=== PATIENT | male | born 1955 | race Caucasian/White ===

== ENCOUNTER 2017-03-10 15:33 | Inpatient (IN) | payer OTHER ==
[~2017-03-10] VITALS: Ht 175.3 cm; Wt 81.2 kg
[2017-03-10 16:09] LABS: BASO % 0.2 % (0.2-1.2); EOS # 0.1 10_X3_uL (0.0-0.5); EOS % 1.1 % (0.8-7.0); GRAN # 7.9 10_X3_uL (1.8-5.4); GRAN % 76.8 % (34.0-67.9); HEMATOCRIT 43.1 % (40-51); HEMOGLOBIN 14.6 g/dL (13.7-17.5); LYMPH # 1.4 10_X3_uL (1.3-3.6); LYMPH % 13.6 % (21.8-53.1); MEAN CORPUSCULAR HEMOGLOBIN 28.7 pg (27.0-33.0); MEAN CORPUSCULAR HGB CONC 33.9 g/dL (32.0-36.0); MEAN CORPUSCULAR VOLUME 84.8 fL (79-92); MEAN PLATELET VOLUME 8.9 fl (7.5-11.5); MONO # 0.9 10_X3_uL (0.3-0.8); MONO % 8.3 % (5.3-12.2); PLATELET COUNT 276 x10_3/uL (163-337); RED BLOOD COUNT 5.08 x10_6/uL (4.6-6.1); RED CELL DISTRIBUTION WIDTH 12.5 % (11.6-14.4); WHITE BLOOD COUNT 10.3 x10_3/uL (4.2-9.1)
[2017-03-10 16:23] LABS: ALKALINE PHOSPHATASE 92 U/L (50-136); ALT/SGPT 13 U/L (7.53-40.17); AST/SGOT 20 U/L (6.66-35.34); BILIRUBIN,TOTAL 0.27 mg/dL (0.0-1.0); BLOOD UREA NITROGEN 21 mg/dL (7-18); CALCIUM 9.1 mg/dL (8.7-10.7); CARBON DIOXIDE 24 mmol/L (21-32); CREATININE 0.9 mg/dL (0.6-1.3); GLUCOSE,RANDOM 135 mg/dL (70-99); LIPASE 19 U/L (6.75-60.75); SODIUM 139 mmol/L (136-145); TOTAL PROTEIN 6.8 gm/dL (6.4-8.2)
[2017-03-11 06:22] LABS: BASO % 0.1 % (0.2-1.2); EOS # 0.2 10_X3_uL (0.0-0.5); EOS % 2.3 % (0.8-7.0); GRAN # 6.2 10_X3_uL (1.8-5.4); HEMATOCRIT 40.1 % (40-51); HEMOGLOBIN 13.3 g/dL (13.7-17.5); LYMPH # 1.4 10_X3_uL (1.3-3.6); LYMPH % 16.6 % (21.8-53.1); MEAN CORPUSCULAR HEMOGLOBIN 28.5 pg (27.0-33.0); MEAN CORPUSCULAR HGB CONC 33.2 g/dL (32.0-36.0); MEAN CORPUSCULAR VOLUME 86.1 fL (79-92); MONO # 0.8 10_X3_uL (0.3-0.8); PLATELET COUNT 244 x10_3/uL (163-337); RED BLOOD COUNT 4.66 x10_6/uL (4.6-6.1); RED CELL DISTRIBUTION WIDTH 12.4 % (11.6-14.4); WHITE BLOOD COUNT 8.6 x10_3/uL (4.2-9.1)
[2017-03-12 07:03] LABS: HEMATOCRIT 39.3 % (40-51); HEMOGLOBIN 13.4 g/dL (13.7-17.5); MEAN CORPUSCULAR HEMOGLOBIN 28.7 pg (27.0-33.0); MEAN CORPUSCULAR HGB CONC 34.1 g/dL (32.0-36.0); MEAN CORPUSCULAR VOLUME 84.2 fL (79-92); MEAN PLATELET VOLUME 8.8 fl (7.5-11.5); RED BLOOD COUNT 4.67 x10_6/uL (4.6-6.1); RED CELL DISTRIBUTION WIDTH 11.9 % (11.6-14.4); WHITE BLOOD COUNT 9.4 x10_3/uL (4.2-9.1)
[2017-03-12 07:19] LABS: ALBUMIN 3.3 gm/dL (3.4-5.0); ALKALINE PHOSPHATASE 75 U/L (50-136); ALT/SGPT 8 U/L (7.53-40.17); AST/SGOT 12 U/L (6.66-35.34); BILIRUBIN,TOTAL 0.46 mg/dL (0.0-1.0); BLOOD UREA NITROGEN 13 mg/dL (7-18); CALCIUM 8.7 mg/dL (8.7-10.7); CARBON DIOXIDE 24 mmol/L (21-32); CREATININE 0.9 mg/dL (0.6-1.3); GLUCOSE,RANDOM 92 mg/dL (70-99); POTASSIUM 4.4 mmol/L (3.5-5.1); SODIUM 140 mmol/L (136-145); TOTAL PROTEIN 6.1 gm/dL (6.4-8.2)
[2017-03-13 05:35] LABS: URINE BILIRUBIN NEGATIVE (NEGATIVE); URINE BLOOD TRACE (NEGATIVE); URINE GLUCOSE (UA) NORMAL (NORMAL); URINE KETONE NEGATIVE (NEGATIVE); URINE LEUKOCYTE ESTERASE TRACE (NEGATIVE); URINE NITRATE NEGATIVE (NEGATIVE); URINE PROTEIN NEGATIVE (NEGATIVE); UROBILINOGEN NORMAL mg/dL (<1.0)
[2017-03-13 05:43] LABS: URINE RBC 0-5 /[HPF] (0-2)
[2017-03-13 06:41] LABS: BASO % 0.2 % (0.2-1.2); EOS # 0.1 10_X3_uL (0.0-0.5); EOS % 1.5 % (0.8-7.0); GRAN # 6.3 10_X3_uL (1.8-5.4); GRAN % 74.1 % (34.0-67.9); HEMATOCRIT 38.8 % (40-51); HEMOGLOBIN 13.2 g/dL (13.7-17.5); LYMPH # 1.3 10_X3_uL (1.3-3.6); LYMPH % 14.9 % (21.8-53.1); MEAN CORPUSCULAR HEMOGLOBIN 28.5 pg (27.0-33.0); MEAN CORPUSCULAR VOLUME 83.8 fL (79-92); MEAN PLATELET VOLUME 8.9 fl (7.5-11.5); MONO # 0.8 10_X3_uL (0.3-0.8); MONO % 9.3 % (5.3-12.2); PLATELET COUNT 271 x10_3/uL (163-337); RED BLOOD COUNT 4.63 x10_6/uL (4.6-6.1); RED CELL DISTRIBUTION WIDTH 11.9 % (11.6-14.4); WHITE BLOOD COUNT 8.5 x10_3/uL (4.2-9.1)
[2017-03-13 07:18] LABS: ALBUMIN 3.2 gm/dL (3.4-5.0); ALKALINE PHOSPHATASE 72 U/L (50-136); ALT/SGPT 6 U/L (7.53-40.17); AST/SGOT 13 U/L (6.66-35.34); BILIRUBIN,TOTAL 0.42 mg/dL (0.0-1.0); BLOOD UREA NITROGEN 11 mg/dL (7-18); CALCIUM 8.6 mg/dL (8.7-10.7); CARBON DIOXIDE 25 mmol/L (21-32); CREATININE 0.9 mg/dL (0.6-1.3); GLUCOSE,RANDOM 97 mg/dL (70-99); MAGNESIUM 1.8 mg/dL (1.8-2.4); SODIUM 137 mmol/L (136-145); TOTAL PROTEIN 6.2 gm/dL (6.4-8.2)
[2017-03-14 07:15] LABS: HEMATOCRIT 40.2 % (40-51); HEMOGLOBIN 13.6 g/dL (13.7-17.5); MEAN CORPUSCULAR HEMOGLOBIN 28.3 pg (27.0-33.0); MEAN CORPUSCULAR HGB CONC 33.8 g/dL (32.0-36.0); MEAN CORPUSCULAR VOLUME 83.8 fL (79-92); RED BLOOD COUNT 4.8 x10_6/uL (4.6-6.1); RED CELL DISTRIBUTION WIDTH 12.1 % (11.6-14.4); WHITE BLOOD COUNT 8.2 x10_3/uL (4.2-9.1)
[2017-03-14 07:22] LABS: BLOOD UREA NITROGEN 9 mg/dL (7-18); CALCIUM 8.7 mg/dL (8.7-10.7); CARBON DIOXIDE 25 mmol/L (21-32); CREATININE 0.8 mg/dL (0.6-1.3); GLUCOSE,RANDOM 108 mg/dL (70-99); POTASSIUM 4.1 mmol/L (3.5-5.1); SODIUM 139 mmol/L (136-145)
[2017-03-15 06:20] LABS: HEMATOCRIT 39.1 % (40-51); HEMOGLOBIN 13.6 g/dL (13.7-17.5); MEAN CORPUSCULAR HGB CONC 34.8 g/dL (32.0-36.0); MEAN CORPUSCULAR VOLUME 83.4 fL (79-92); MEAN PLATELET VOLUME 8.6 fl (7.5-11.5); RED BLOOD COUNT 4.69 x10_6/uL (4.6-6.1); WHITE BLOOD COUNT 7.8 x10_3/uL (4.2-9.1)
[2017-03-15 06:35] LABS: BLOOD UREA NITROGEN 10 mg/dL (7-18); CALCIUM 8.4 mg/dL (8.7-10.7); CARBON DIOXIDE 24 mmol/L (21-32); CREATININE 0.8 mg/dL (0.6-1.3); GLUCOSE,RANDOM 108 mg/dL (70-99); POTASSIUM 4.2 mmol/L (3.5-5.1); SODIUM 138 mmol/L (136-145)
== END 2017-03-15 11:05 | disposition home or self-care (01) | DRG 392 ==
LOC: ER 15:33 → MS 17:46
PROVIDERS: Family Medicine; Internal Medicine; ADMIT Family Medicine
DX: K57.20 Diverticulitis of large intestine with perforation and abscess without bleeding (principal); R10.30 Lower abdominal pain, unspecified; R31.9 Hematuria, unspecified; K59.00 Constipation, unspecified; E78.5 Hyperlipidemia, unspecified; J44.9 Chronic obstructive pulmonary disease, unspecified; G47.00 Insomnia, unspecified; R50.9 Fever, unspecified; E03.9 Hypothyroidism, unspecified; F17.210 Nicotine dependence, cigarettes, uncomplicated; Z83.3 Family history of diabetes mellitus; Z80.9 Family history of malignant neoplasm, unspecified; Z82.49 Family history of ischemic heart disease and other diseases of the circulatory system; Z79.1 Long term (current) use of non-steroidal anti-inflammatories (NSAID); Z79.899 Other long term (current) drug therapy
CPT/HCPCS: 36415; 74150; 80048; 80053; 81001; 83690; 83735; 85025; 87040; 96365; 96367; 96375; 99070; 99285-25; J7042

== ENCOUNTER 2017-04-09 09:31 | Observation (INO) | payer OTHER ==
[~2017-04-09] VITALS: Ht 180.3 cm; Wt 82.0 kg
[2017-04-09 11:13] LABS: HEMATOCRIT 41.8 % (40-51); HEMOGLOBIN 14.1 g/dL (13.7-17.5); MEAN CORPUSCULAR HEMOGLOBIN 28.1 pg (27.0-33.0); MEAN CORPUSCULAR HGB CONC 33.7 g/dL (32.0-36.0); MEAN CORPUSCULAR VOLUME 83.3 fL (79-92); RED BLOOD COUNT 5.02 x10_6/uL (4.6-6.1); RED CELL DISTRIBUTION WIDTH 12.5 % (11.6-14.4); WHITE BLOOD COUNT 13.4 x10_3/uL (4.2-9.1)
[2017-04-09 11:25] LABS: ALBUMIN 3.8 gm/dL (3.4-5.0); ALKALINE PHOSPHATASE 78 U/L (50-136); ALT/SGPT 22 U/L (7.53-40.17); AMYLASE 58 U/L (15.62-74.58); AST/SGOT 23 U/L (6.66-35.34); BILIRUBIN,TOTAL 0.44 mg/dL (0.0-1.0); BLOOD UREA NITROGEN 16 mg/dL (7-18); CALCIUM 9.5 mg/dL (8.7-10.7); CARBON DIOXIDE 28 mmol/L (21-32); CREATININE 0.8 mg/dL (0.6-1.3); GLUCOSE,RANDOM 98 mg/dL (70-99); LIPASE 19 U/L (6.75-60.75); POTASSIUM 4.8 mmol/L (3.5-5.1); SODIUM 138 mmol/L (136-145); TOTAL PROTEIN 7.5 gm/dL (6.4-8.2)
[2017-04-09 14:45] LABS: URINE BILIRUBIN NEGATIVE (NEGATIVE); URINE BLOOD TRACE (NEGATIVE); URINE GLUCOSE (UA) NORMAL (NORMAL); URINE KETONE NEGATIVE (NEGATIVE); URINE LEUKOCYTE ESTERASE TRACE (NEGATIVE); URINE NITRATE NEGATIVE (NEGATIVE); URINE PROTEIN TRACE (NEGATIVE); UROBILINOGEN NORMAL mg/dL (<1.0)
[2017-04-09 14:47] LABS: URINE BACTERIA TRACE (NONE SEEN); URINE RBC RARE /[HPF] (0-2); URINE SQUAMOUS EPITHELIAL CELL 0-10 /[HPF] (NONE SEEN); URINE WBC RARE /[HPF] (0-3)
[2017-04-10 06:37] LABS: ALBUMIN 3.2 gm/dL (3.4-5.0); ALKALINE PHOSPHATASE 64 U/L (50-136); ALT/SGPT 17 U/L (7.53-40.17); AST/SGOT 19 U/L (6.66-35.34); BILIRUBIN,TOTAL 0.51 mg/dL (0.0-1.0); BLOOD UREA NITROGEN 16 mg/dL (7-18); CALCIUM 8.6 mg/dL (8.7-10.7); CARBON DIOXIDE 23 mmol/L (21-32); CREATININE 0.8 mg/dL (0.6-1.3); GLUCOSE,RANDOM 90 mg/dL (70-99); POTASSIUM 4.1 mmol/L (3.5-5.1); SODIUM 137 mmol/L (136-145)
[2017-04-10 06:50] LABS: BASO % 0.2 % (0.2-1.2); EOS # 0.2 10_X3_uL (0.0-0.5); EOS % 1.8 % (0.8-7.0); GRAN # 9.3 10_X3_uL (1.8-5.4); GRAN % 83.1 % (34.0-67.9); HEMATOCRIT 35.8 % (40-51); HEMOGLOBIN 12.4 g/dL (13.7-17.5); LYMPH # 0.9 10_X3_uL (1.3-3.6); LYMPH % 8.4 % (21.8-53.1); MEAN CORPUSCULAR HEMOGLOBIN 28.6 pg (27.0-33.0); MEAN CORPUSCULAR HGB CONC 34.6 g/dL (32.0-36.0); MEAN CORPUSCULAR VOLUME 82.7 fL (79-92); MONO # 0.7 10_X3_uL (0.3-0.8); MONO % 6.5 % (5.3-12.2); PLATELET COUNT 219 x10_3/uL (163-337); RED BLOOD COUNT 4.33 x10_6/uL (4.6-6.1); RED CELL DISTRIBUTION WIDTH 12.2 % (11.6-14.4); WHITE BLOOD COUNT 11.2 x10_3/uL (4.2-9.1)
[2017-04-11 07:03] LABS: HEMATOCRIT 35.5 % (40-51); HEMOGLOBIN 12.1 g/dL (13.7-17.5); MEAN CORPUSCULAR HEMOGLOBIN 28.3 pg (27.0-33.0); MEAN CORPUSCULAR HGB CONC 34.1 g/dL (32.0-36.0); MEAN CORPUSCULAR VOLUME 82.9 fL (79-92); MEAN PLATELET VOLUME 8.9 fl (7.5-11.5); RED BLOOD COUNT 4.28 x10_6/uL (4.6-6.1); WHITE BLOOD COUNT 8.2 x10_3/uL (4.2-9.1)
[2017-04-11 07:14] LABS: BLOOD UREA NITROGEN 11 mg/dL (7-18); CALCIUM 8.6 mg/dL (8.7-10.7); CARBON DIOXIDE 23 mmol/L (21-32); CREATININE 0.8 mg/dL (0.6-1.3); GLUCOSE,RANDOM 97 mg/dL (70-99); POTASSIUM 4.1 mmol/L (3.5-5.1); SODIUM 141 mmol/L (136-145)
== END 2017-04-11 13:20 | disposition home or self-care (01) ==
LOC: MS 09:31
PROVIDERS: ADMIT Family Medicine
DX: K57.20 Diverticulitis of large intestine with perforation and abscess without bleeding (principal); A04.7 Enterocolitis due to Clostridium difficile; R10.32 Left lower quadrant pain; R50.9 Fever, unspecified; J44.9 Chronic obstructive pulmonary disease, unspecified; E03.9 Hypothyroidism, unspecified; J60 Coalworker's pneumoconiosis; R19.7 Diarrhea, unspecified; E78.5 Hyperlipidemia, unspecified; R19.5 Other fecal abnormalities; D64.9 Anemia, unspecified; K22.0 Achalasia of cardia; R10.30 Lower abdominal pain, unspecified; Z88.8 Allergy status to other drugs, medicaments and biological substances; Z82.49 Family history of ischemic heart disease and other diseases of the circulatory system; Z87.891 Personal history of nicotine dependence; Z79.899 Other long term (current) drug therapy
CPT/HCPCS: 36415; 71250; 80048; 80053; 81001; 82150; 83605; 83690; 83735; 85025; 87040; 87045; 87177; 87324; 96361; 96365; 96366; 96367; 99070; G0328-QW; G0378; J3370; J7040; Q9967